=== PATIENT | female | born 1985 | race Caucasian/White ===

== ENCOUNTER 2018-09-03 17:53 | Emergency (ER) | payer SELFPAY ==
[2018-09-03] MEDS ORDERED: Ondansetron 4 MG Tab.DIS PO ONE (18:30)
--- NOTE | 2018-09-03 19:14 | EDM.PDOC ---
ED HPI GENERAL MEDICAL PROBLEM - General Chief Complaint: Headache Stated Complaint: HEAD PAIN, NAUSEA, SORE THROAT Time Seen by Provider: 09/03/18 18:18 Source of Information: Reports: Patient, RN Notes Reviewed - History of Present Illness INITIAL COMMENTS - FREE TEXT/NARRATIVE: 32-year-old female that awakened with scratchy sore throat this morning. Had a headache today and also does have some upper midabdominal discomfort. She has had some nausea, decreased appetite. No vomiting or diarrhea. Scheduled to go to work at 9:00 this evening. She does not feel up to that. She has mild nasal congestion. He is not coughing. No definite fever. Headache Pain Score (Numeric/FACES): 10 - Related Data Allergies Allergy/AdvReac Type Severity Reaction Status Date / Time diphenhydramine Allergy Hives Verified 09/03/18 18:09 [From Benadryl Allergy] Penicillins Allergy Swelling Verified 09/03/18 18:09 promethazine [From Phenergan] Allergy Swelling Verified 09/03/18 18:09 soy Allergy Hives Verified 09/03/18 18:09 Home Meds: Home Meds . [No Known Home Meds] 09/03/18 [History] ED ROS GENERAL - Review of Systems Review Of Systems: See Below Constitutional: Denies: Fever, Chills HEENT: Reports: Rhinitis, Throat Pain Respiratory: Denies: Shortness of Breath, Cough Cardiovascular: Denies: Chest Pain GI/Abdominal: Reports: Abdominal Pain, Decreased Appetite, Nausea. Denies: Diarrhea, Vomiting Skin: Denies: Rash Neurological: Reports: Headache ED EXAM, GENERAL - Physical Exam Exam: See Below General Appearance: Alert, Mild Distress Eye Exam: Bilateral Eye: PERRL Throat/Mouth: Normal Inspection, Normal Oropharynx. No: Inflammation Neck: Supple. No: Lymphadenopathy (L), Lymphadenopathy (R) Respiratory/Chest: No Respiratory Distress, Lungs Clear. No: Rhonchi Cardiovascular: Regular Rate, Rhythm GI/Abdominal: Soft, Tender (Very mild tenderness upper mid abdomen, abdomen otherwise completely soft and nontender). No: Guarding, Rebound Back Exam: No: CVA Tenderness (L), CVA Tenderness (R) Neurological: Alert, Oriented Skin Exam: Warm, Dry, Normal Color, No Rash Course - Vital Signs Last Recorded V/S: Last Vital Signs Temp 97.2 F 09/03/18 18:06 Pulse 75 09/03/18 18:06 Resp 18 09/03/18 18:06 BP 125/77 09/03/18 18:06 Pulse Ox 100 09/03/18 18:06 - Orders/Labs/Meds Meds: Medications Discontinued Medications Generic Name Dose Route Start Last Admin Trade Name Kalin PRN Reason Stop Dose Admin Ondansetron HCl 4 mg 09/03/18 18:30 09/03/18 18:39 Zofran Odt PO 09/03/18 18:31 4 mg ONETIME ONE Administration Departure - Departure Time of Disposition: 19:13 Disposition: Home, Self-Care 01 Condition: Fair Clinical Impression: Viral syndrome Abdominal pain Qualifiers: Abdominal location: upper abdomen, unspecified Qualified Code(s): R10.10 - Upper abdominal pain, unspecified Pharyngitis Qualifiers: Pharyngitis/tonsillitis etiology: unspecified etiology Qualified Code(s): J02.9 - Acute pharyngitis, unspecified - Discharge Information Instructions: Abdominal Pain, Adult, [id number], Pharyngitis, [id number] Referrals: PCP,None [Primary Care Provider] - Forms: ED Department Discharge, ED Return to Work/School Form Additional Instructions: Clear liquids until morning, then very careful bland diet as tolerated, avoid milk and dairy products for 2 days. Follow-up clinic if not getting back to normal by Wednesday, return to ED as needed if symptoms worsening in any way.
== END 2018-09-03 19:42 | disposition home or self-care (01) ==
LOC: JD.ED 17:53
DX: B34.9 Viral infection, unspecified (principal); R10.10 Upper abdominal pain, unspecified; Z88.8 Allergy status to other drugs, medicaments and biological substances; Z88.0 Allergy status to penicillin
CPT/HCPCS: 99283; A9270

== ENCOUNTER 2019-01-04 21:19 | Emergency (ER) | payer MEDICAID, MEDICARE ==
--- NOTE | 2019-01-04 21:48 | EDM.PDOC ---
ED HPI GENERAL MEDICAL PROBLEM - General Chief Complaint: Flank Pain Stated Complaint: POSS KIDNEY STONE Time Seen by Provider: 01/04/19 21:28 Source of Information: Reports: Patient, RN Notes Reviewed History Limitations: Reports: No Limitations - History of Present Illness INITIAL COMMENTS - FREE TEXT/NARRATIVE: Patient is a 33-year-old female who presents to the ED for evaluation of bilateral flank pain. Patient notes that she developed this pain this morning, and the pain has been waxing and waning in the morning, but is now staying constant. She notes that the pain is sharp/stabbing, dull/aching all same time. She states that the pain does not radiate anywhere into the abdomen. She denies any dysuria, however she complains of some urinary frequency. Patient's unsure she's had any fevers or chills, but does have nausea. She notes that she has had a hysterectomy, so states she gets hot flashes normally. Patient did not take any medications at home for pain management. She states that the pain worsens also with movement. She has not found anything this necessarily made this better. She states that she had pain similar to this in April, but she did not seek care for evaluation at that time. She does not have a primary care provider, she does smoke cigarettes and uses caffeine, but denies any alcohol or drug use. Bilateral Flank Pain Score (Numeric/FACES): 9 - Related Data Allergies Allergy/AdvReac Type Severity Reaction Status Date / Time diphenhydramine Allergy Hives Verified 01/04/19 21:27 [From Benadryl Allergy] Penicillins Allergy Swelling Verified 01/04/19 21:27 promethazine [From Phenergan] Allergy Swelling Verified 01/04/19 21:27 soy Allergy Hives Verified 01/04/19 21:27 Home Meds: Home Meds . [No Known Home Meds] 09/03/18 [History] Past Medical History HEENT History: Reports: Hard of Hearing Cardiovascular History: Reports: None Respiratory History: Reports: Asthma [employer] History: Reports: , Spontaneous Musculoskeletal History: Reports: Arthritis Neurological History: Reports: Seizure Psychiatric History: Reports: Bipolar Endocrine/Metabolic History: Reports: None Hematologic History: Reports: None Immunologic History: Reports: None Oncologic (Cancer) History: Reports: None Dermatologic History: Reports: None - Infectious Disease History Infectious Disease History: Reports: Hepatitis C - Past Surgical History Head Surgeries/Procedures: Reports: None HEENT Surgical History: Reports: Myringotomy w Tube(s), Tonsillectomy Other HEENT Surgeries/Procedures: Mastoid surgeries, 16 sets of tubes done in the ears. GI Surgical History: Reports: Cholecystectomy Female Surgical History: Reports: Hysterectomy Other Female Surgeries/Procedures: Ovaries removed. Social & Family History - Tobacco Use Smoking Status *Q: Current Every Day Smoker Years of Tobacco use: 6 Packs/Tins Daily: 0.5 - Caffeine Use Caffeine Use: Reports: Coffee, Soda - Recreational Drug Use Recreational Drug Use: No ED ROS GENERAL - Review of Systems Review Of Systems: See Below Constitutional: Denies: Fever, Chills (hot flashes) HEENT: Reports: No Symptoms Respiratory: Denies: Shortness of Breath Cardiovascular: Denies: Chest Pain GI/Abdominal: Reports: Nausea. Denies: Abdominal Pain, Constipation, Diarrhea, Vomiting : Reports: Flank Pain (bilateral), Frequency. Denies: Discharge, Dysuria Musculoskeletal: Reports: No Symptoms Skin: Reports: No Symptoms Neurological: Reports: No Symptoms Psychiatric: Reports: No Symptoms Hematologic/Lymphatic: Reports: No Symptoms ED EXAM, RENAL/ - Physical Exam Exam: See Below Exam Limited By: No Limitations General Appearance: Alert, WD/WN, No Apparent Distress Eye Exam: Bilateral Eye: EOMI Throat/Mouth: Normal Inspection, Normal Lips, Normal Teeth, Normal Gums, Normal Oropharynx, Normal Voice, No Airway Compromise Head: Atraumatic, Normocephalic Neck: Normal Inspection Respiratory/Chest: No Respiratory Distress, Lungs Clear, Normal Breath Sounds, No Accessory Muscle Use, Chest Non-Tender Cardiovascular: Normal Peripheral Pulses, Regular Rate, Rhythm, No Edema, No Murmur GI/Abdominal: Normal Bowel Sounds, Soft, Non-Tender, No Distention, No Mass Back Exam: CVA Tenderness (R). No: CVA Tenderness (L), Muscle Spasm Extremities: Normal Inspection, Normal Capillary Refill Neurological: Alert, Oriented, Normal Cognition, No Motor/Sensory Deficits Psychiatric: Normal Affect, Normal Mood Skin Exam: Warm, Dry, Intact, Normal Color, No Rash Course - Vital Signs Last Recorded V/S: Last Vital Signs Temp 96.6 F 01/04/19 21:24 Pulse 91 01/04/19 21:24 Resp 16 01/04/19 21:24 BP 126/66 01/04/19 21:24 Pulse Ox 100 01/04/19 21:24 - Orders/Labs/Meds Orders: Active Orders 24 hr Category Date Time Status Abdomen Pelvis wo Cont [CT] Stat Exams 01/04/19 21:38 Ordered Labs: Laboratory Tests 01/04/19 Range/Units 21:44 Urine Color Yellow (Yellow) Urine Appearance Slt cloudy H (Clear) Urine pH 6.0 (5.0-8.0) Ur Specific [place] > or = 1.030 (1.005-1.030) Urine Protein Negative (Negative) Urine Glucose (UA) Negative (Negative) Urine Ketones Negative (Negative) Urine Occult Blood Negative (Negative) Urine Nitrite Negative (Negative) Urine Bilirubin Negative (Negative) Urine Urobilinogen 0.2 (0.2-1.0) Ur Leukocyte Esterase Negative (Negative) Urine RBC 0-5 (0-5) /hpf Urine WBC 0-5 (0-5) /hpf Ur Squamous Epith Cells 5-10 H (0-5) /hpf Urine Bacteria Not seen (FEW) /hpf Urine Mucus Many H (FEW) /hpf - Re-Assessments/Exams Free Text/Narrative Re-Assessment/Exam: 01/04/19 21:43 Patient presents to the ED for evaluation of bilateral flank pain. Did order a urinalysis to be obtained, and an abdominal pelvis CT without contrast for further evaluation. 01/04/19 22:[address] is done, and read per Vrad-cholecystectomy, normal kidneys and ureters, no stones appreciated, no inflamed or dilated loops of bowel, no evidence of appendicitis. There were essentially no acute findings on the CT. I did review the CT myself and it looks as if she has quite a bit of stool within her colon would be consistent with constipation, and could explain most of her symptoms. I will order a bottle of magnesium citrate from his home with the patient with other general recommendations. Departure - Departure Time of Disposition: 22:19 Disposition: Home, Self-Care 01 Condition: Fair Clinical Impression: Constipation Qualifiers: Constipation type: unspecified constipation type Qualified Code(s): K59.00 - Constipation, unspecified - Discharge Information *PRESCRIPTION DRUG MONITORING PROGRAM REVIEWED*: No *COPY OF PRESCRIPTION DRUG MONITORING REPORT IN PATIENT JESSICA: No Instructions: Constipation, Adult, [id number] Referrals: PCP,Not In Area [Primary Care Provider] - Forms: ED Department Discharge Additional Instructions: You were evaluated in the ER today regarding your bilateral abdominal/flank pain. Your workup in the ER today revealed that you are not suffering from a kidney stone, and that it is more suggestive of constipation. As there was quite a bit of stool noted within the colon on the CT. You were given a bottle of magnesium citrate, please drink one half bottle, wait a few hours to see if you have results, and if you do not, please take the other half of the bottle. Recommend that you start taking a stool softener like MiraLAX on a daily basis to try to keep your stool soft and guard against constipation. You may also increase your fluid intake and try to keep well-hydrated. Please return to the ED if your symptoms change or worsen. - My Orders Last 24 Hours: My Active Orders 01/04/19 21:38 Abdomen Pelvis wo Cont [CT] Stat - Assessment/Plan Last 24 Hours: My Active Orders 01/04/19 21:38 Abdomen Pelvis wo Cont [CT] Stat
[2019-01-04] MEDS ORDERED: Magnesium Citrate Solution 296 ML Bottle PO ONE (22:22)
--- NOTE | 2019-01-06 08:28 | CT ---
CT abdomen and pelvis Technique: Multiple axial sections were obtained from above the dome of the diaphragm inferiorly through the pubic symphysis. Intravenous and oral contrast was not utilized. Comparison: No previous abdominal imaging. Findings: Visualized lung bases show nothing acute. Liver contains no focal parenchymal abnormality. Surgical clips are seen from previous cholecystectomy. No abnormality appreciated within the spleen. Adrenal glands show no nodule. Pancreas shows no discrete abnormality. Kidneys show no abnormal calcifications. No hydronephrosis is seen within either kidney. No ureteral dilatation or ureteral stone is seen. Aorta shows no aneurysm. No retroperitoneal adenopathy or mesenteric abnormalities are seen. Appendix is seen which is normal. No pelvic mass or adenopathy is seen. Single surgical clip is seen anteriorly within the lower pelvis. No free fluid or inflammatory change is seen. Bone window settings were reviewed which appear within normal limits for the patient's age. Impression: 1. No renal calculi, ureteral dilatation or ureteral stone is seen. 2. Nothing acute is appreciated on noncontrast CT study of the abdomen and pelvis. Diagnostic code #2 I agree with preliminary report from [facility], finalized on 01/04/19, 11:12 PM Central Time
== END 2019-01-04 22:45 | disposition home or self-care (01) ==
LOC: JD.ED 21:19
DX: K59.00 Constipation, unspecified (principal); F17.210 Nicotine dependence, cigarettes, uncomplicated; Z88.0 Allergy status to penicillin; Z88.8 Allergy status to other drugs, medicaments and biological substances; Z91.018 Allergy to other foods
CPT/HCPCS: 74176; 81001; 99284; A9270